=== PATIENT | female | born 1980 | race Caucasian/White ===

== ENCOUNTER → 2016-03-16 | Outpatient (CLI) | payer BC ==
[~2016-03-16] MED LIST: PRENTAB26 PO
== END | disposition home or self-care (01) ==
LOC: C.LAB 10:15
PROVIDERS: ATTEND Obstetrics & Gynecology
DX: O03.9 Complete or unspecified spontaneous abortion without complication (principal)

== ENCOUNTER 2019-06-27 07:42 | Inpatient (IN) ==
[2019-06-27] MEDS ORDERED: OXYTOCIN 30 UNITS/500 ML BAG IV PRN ×3 (08:17→17:59)
[2019-06-27 08:38] LABS: Hemoglobin 12.7 g/dL (12.0-16.0); Mean Corpuscular Hemoglobin 30.2 pg (25-34); Mean Corpuscular Volume 90.5 fL (80-100); Mean Platelet Volume 12.1 fL (7.4-10.4); Platelet Count 171 K/uL (130-400); RDW Coefficient of Variation 13.9 % (11.5-14.5); RDW Standard Deviation 45.7 fL (36.4-46.3); White Blood Count 8.64 K/uL (4.8-10.8)
[2019-06-27 08:40] LABS: Mean Corpuscular Hgb Conc 33.4 g/dL (32-36)
--- NOTE | 2019-06-27 08:42 | History & Physical Report ---
Date of Service June 27, 2019 Assessment & Plan (1) Elective induction of labor planned: 38 yo at 40 wks, with h/o forceps delivery IOL at term VSS Afebrile FHR reassuring GBS negative Plan to admit, monitor, labs and IOL with Oxytocin/ AROM when able All questions were answered (2) History of forceps delivery in prior , currently : History of Present Illness Primary Care Provider: Kaylene Butterfield Patient is a 38 yo at 40 wks who is here for IOL at term No complaints No ctxs/ LOF/ VB/ DONG/ change in vision/ N&V/ Fever/ chills +FM's Her has been uncomplicated AMA GBS negative h/o forceps delivery in 2010, 8 lb 11 oz Allergies Allergy/AdvReac Type Severity Reaction Status Date / Time No Known Allergies Allergy Unverified 05/25/10 09:10 Home Medications Home Medications Medication Instructions Recorded Confirmed Type Multivit/Min/Iron/Fol Ac/Pren 1 tab PO DAILY #0 05/25/10 06/27/19 History ( Vitamin) Patient History Social History Preferred Language: Ghanaian Beliefs That Will Affect Care: None marital status: Current Living Situation: Family Other Information That Helps Us Care for You: No Feels Safe at Home: Yes Safety Concerns: Feels Safe At This Time Smoking Status: Never smoker Do You Dip or Chew Tobacco: No ; Hx Alcohol Use: No Hx Substance Use: No OB History 2010 FT, Forceps delivery , 8 lb 11 oz 2012 FT, IOL at 39 wks, 8 lb 2 oz [employer] History No h/o STD's Review of Systems All systems reviewed & are unremarkable except as noted in HPI & below Physical Exam Gastrointestinal (Abdomen): Abd: soft, NT, gravid, Julius 8-9 lb Genitourinary: normal external appearance Manual OB Exam: + cervical dilation 2 cm, + cervical effacement 30% and + station (-3) high OB Exam Monitor Tracing: + external FHT monitor used and + category I Results & Data Vital Signs (Past 12 Hours) Vital Signs Temp Pulse Resp BP 06/27/19 08:23 85 129/80 06/27/19 08:19 85 127/76 06/27/19 08:13 93 H 139/90 06/27/19 07:59 96 H 139/83 06/27/19 07:50 36.8 C 20 Monitoring External Monitor 130's reactive NST Tocodynamometer No ctxs
[2019-06-27 08:54] LABS: Albumin Level 2.5 gm/dl (3.4-5.0); BUN Creatinine Ratio 11.7 (10-20); Creatinine Clr Calc Pharmacy 130.7 ml/min; Est GFR (African American) 130.8; Est GFR (Non-African American) 112.9; Potassium 3.9 mmol/L (3.5-5.1)
[2019-06-27 08:57] LABS: Albumin Globulin Ratio 0.6 (0.9-2); Bilirubin,Total 0.3 mg/dl (0.2-1); Globulin 4.1 gm/dl (2.5-4.0); Total Protein 6.6 gm/dl (6.4-8.2)
[2019-06-27] MEDS: LACTATED RINGER'S 1,000 ML IV PRN ×3 (09:07→17:57)
[2019-06-27] MEDS ORDERED: BUPIVACAINE 0.25% 30 ML VIAL ONE (14:06)
[2019-06-27] MEDS ORDERED: ePHEDrine sulfate 50 MG/ML AMP ONE (14:06)
[2019-06-27] MEDS ORDERED: fentaNYL citrate 100 MCG/2 ML VIAL ONE (14:06)
[2019-06-27] MEDS ORDERED: fentaNYL 2MCG/ML ROPIV 1.25MG/ML 100 ML BAG EPI ONE (14:07)
[2019-06-27] MEDS ORDERED: NALBUPHINE HCL INJ 10 MG/ML AMP IV PRN (14:19)
[2019-06-27] MEDS ORDERED: fentaNYL 2MCG/ML ROPIV 1.25MG/ML 100 ML BAG EPI PRN (14:19)
[2019-06-27] MEDS ORDERED: NALOXONE HCL 0.4 MG/1 ML VIAL/CARP IV PRN (14:19)
[2019-06-27] MEDS ORDERED: METOCLOPRAMIDE HCL 20 MG in SODIUM CHLORIDE 0.9% 50 ML IV PRN (14:19)
[2019-06-27] MEDS ORDERED: ePHEDrine sulfate 50 MG/ML AMP IV PRN (14:19)
[2019-06-27] MEDS ORDERED: PROMETHAZINE HCL 25 MG in SODIUM CHLORIDE 0.9% 50 ML IV PRN (14:19)
[2019-06-27] MEDS ORDERED: NALOXONE HCL 1 MG in SODIUM CHLORIDE 0.9% 1000ML 1,000 ML IV PRN (14:19)
[2019-06-27] MEDS ORDERED: DiphenhydrAMINE HCL 50 MG/ML VIAL IV PRN (14:19)
[2019-06-27] MEDS ORDERED: ONDANSETRON INJ 2 MG/ML 2 ML VIAL IV PRN (14:19)
--- NOTE | 2019-06-27 14:19 | Anesthesiology Consultation ---
Date of Service June 27, 2019 Assessment & Plan Chart Review Chart Review: Acceptable Risk for Labor Epidural Consults Requested none ASA ASA2 Proposed Anesthesia Anesthesia Type: Labor Epidural Risk / Benefits Reviewed With: PT / POA / Parent / Guardian, Accepts Plan and Informed Consent Obtained History Height/Weight Height: 5 ft 6 in Weight: 88.451 kg Allergies Allergy/AdvReac Type Severity Reaction Status Date / Time No Known Allergies Allergy Unverified 05/25/10 09:10 Medications Home Medications Medication Instructions Recorded Confirmed Last Taken docusate sodium [Colace] 100 mg PO DAILY 06/27/19 06/27/19 06/26/19 18:00 vit-iron fum-folic ac 1 tab PO DAILY 06/27/19 06/27/19 06/26/19 18:00 [ Vitamin] Active Medications Generic Name Dose Route Start Last Admin Trade Name Freq PRN Reason Stop Dose Admin Lactated Ringer's 1,000 mls @ 150 mls/hr 06/27/19 08:17 06/27/19 14:20 Lr IV 06/29/19 08:16 150 mls/hr .[id number] PRN Administration L&D Protocol Protocol Oxytocin 30 units in 500 mls @ 8 mls/hr 06/27/19 08:21 06/27/19 12:15 Pitocin IV 06/29/19 08:20 0.48 units/hr .Q24H PRN 8 mls/hr Labor Induction/Augmentation Titration Protocol 0.48 UNITS/HR NPO Date Last Intake of Fluids: 06/27/19 Time Last Intake of Fluids: 13:00 Date Last Intake of Solids: 06/27/19 Time Last Intake of Solids: 07:00 Exercise / Class Metabolic Activity II 4-5 Yardwork/Stairs/Walk up hill Past Anesthesia History No Hx of Anesthesia Complications and No Family Hx of Anesthesia Complications History of PONV No Hx of PONV and No Hx of Motion Sickness Social History Smoking Status: Never smoker Do You Dip or Chew Tobacco: No Hx Alcohol Use: No Hx Substance Use: No Physical Exam Vital Signs Last Vital Signs Temp 36.8 C 06/27/19 13:15 Pulse 74 06/27/19 12:24 Resp 20 06/27/19 13:15 BP 144/73 H 06/27/19 12:24 ENMT Mouth: no TMJ abnormality Thyromental Distance: > or= 3.5 Finger Breadths Mallampati Class: II Neck normal visual inspection and trachea midline; neck extension not limited Respiratory normal respiratory effort Auscultation: lungs clear to auscultation bilaterally Cardiovascular Rate/Rhythm: regular rate and regular rhythm Heart Sounds: no murmur Musculoskeletal Spine: normal cervical ROM Extremities: full ROM of extremities Neurologic moves all extremities Psychiatric Orientation: alert and oriented x 3 Testing Laboratory Results 06/27/19 08:23 06/27/19 08:23
--- NOTE | 2019-06-27 15:39 | Obstetrical Progress Note ---
Date of Service June 27, 2019 Assessment & Plan Admission and Anticipated Discharge Date Admission Date: June 27, 2019 Subjective Patient is reevaluated I AROM'ed her at 12:20 , abundant clear fluid, cervix was 4/ 50%/ -2, FHR had been categ I She then had epidural for pain, now feels comfortable VE; 6-7cm/ 80%/ -1 FHR 140's with good variability, decels to 100's some with ctxs ( early) some after ( late) Ctxs q 1-3 min Bladder is catheterized 100 ml clear urine Plan to stop Oxytocin, Nasal O2, IVF bouls and continue to monitor closely Results & Data ([facility]) Vital Signs (Past 12 Hours) Vital Signs Temp Pulse Resp BP Pulse Ox 06/27/19 15:35 66 133/81 06/27/19 15:33 70 92 06/27/19 15:31 72 98 06/27/19 15:26 66 99 06/27/19 15:21 70 98 06/27/19 15:20 70 133/58 L 06/27/19 15:16 66 99 06/27/19 15:12 74 115/62 06/27/19 15:11 76 99 06/27/19 15:07 78 109/60 06/27/19 15:06 71 98 06/27/19 15:05 75 103/58 L 06/27/19 15:03 69 113/69 06/27/19 15:01 73 104/63 97 06/27/19 14:59 82 97/63 L 06/27/19 14:57 82 101/54 L 06/27/19 14:56 87 98 06/27/19 14:53 95 H 134/81 06/27/19 14:51 85 99 06/27/19 14:46 89 98 06/27/19 14:41 83 98 06/27/19 14:38 98 H 130/65 06/27/19 13:15 36.8 C 20 06/27/19 12:30 20 06/27/19 12:24 74 144/73 H 06/27/19 12:15 72 138/101 H 06/27/19 11:16 71 117/65 06/27/19 10:16 86 143/93 H 06/27/19 09:13 83 135/79 04/15/20 08:23 85 129/80 06/27/19 08:19 85 127/76 06/27/19 08:13 93 H 139/90 06/27/19 07:59 96 H 139/83 06/27/19 07:50 36.8 C 20
--- NOTE | 2019-06-27 16:44 | Obstetrical Progress Note ---
Date of Service June 27, 2019 Assessment & Plan Admission and Anticipated Discharge Date Admission Date: June 27, 2019 Subjective Patient feels more pain with ctxs VE; 8-9/ 90%/ 0 FHR categ I, no more decels Ctxs spaced out Continue to monitor, restart pitocin from beginning Results & Data ([facility]) Vital Signs (Past 12 Hours) Vital Signs Temp Pulse Resp BP Pulse Ox 06/27/19 16:36 75 99 06/27/19 16:35 68 109/55 L 06/27/19 16:31 75 99 06/27/19 16:30 20 06/27/19 16:26 68 100 06/27/19 16:21 72 100 06/27/19 16:16 68 100 06/27/19 16:11 64 100 06/27/19 16:06 77 114/68 100 06/27/19 16:01 68 100 06/27/19 16:00 20 06/27/19 15:56 67 100 06/27/19 15:51 65 100 06/27/19 15:50 69 121/73 06/27/19 15:46 64 119/71 98 06/27/19 15:45 20 06/27/19 15:41 63 100 06/27/19 15:36 66 99 06/27/19 15:35 66 133/81 06/27/19 15:33 70 92 06/27/19 15:31 72 98 06/27/19 15:26 66 99 06/27/19 15:21 70 98 06/27/19 15:20 70 133/58 L 06/27/19 15:16 66 99 06/27/19 15:12 74 115/62 06/27/19 15:11 76 99 06/27/19 15:07 78 109/60 06/27/19 15:06 71 98 06/27/19 15:05 75 103/58 L 06/27/19 15:03 69 113/69 06/27/19 15:01 73 104/63 97 06/27/19 14:59 82 97/63 L 06/27/19 14:57 82 101/54 L 06/27/19 14:56 87 98 06/27/19 14:53 95 H 134/81 06/27/19 14:51 85 99 06/27/19 14:46 89 98 06/27/19 14:41 83 98 06/27/19 14:38 98 H 130/65 06/27/19 13:15 36.8 C 20 06/27/19 12:30 20 06/27/19 12:24 74 144/73 H 06/27/19 12:15 72 138/101 H 06/27/19 11:16 71 117/65 06/27/19 10:16 86 143/93 H 06/27/19 09:13 83 135/79 06/27/19 08:23 85 129/80 06/27/19 08:19 85 127/76 06/27/19 08:13 93 H 139/90 06/27/19 07:59 96 H 139/83 06/27/19 07:50 36.8 C 20
[2019-06-27] MEDS ORDERED: METHYLERGONOVINE MALEATE 0.2 MG/ML AMP ONE (17:54)
[2019-06-27] MEDS ORDERED: bisacodyL 10 MG SUPP PR PRN (17:59)
[2019-06-27] MEDS ORDERED: SUPERCREAM 0.870% 15 GM JAR EXT PRN (17:59)
[2019-06-27] MEDS ORDERED: HYDROCORTISONE ACETATE 25 MG SUPP PR PRN (17:59)
[2019-06-27] MEDS ORDERED: ACETAMINOPHEN 325 MG TAB PO PRN (17:59)
[2019-06-27] MEDS ORDERED: BENZOCAINE 20% AER SPR 82.5 GM CAN EXT PRN (17:59)
[2019-06-27] MEDS ORDERED: MEASLES, MUMPS & RUBELLA VIRUS VIAL SQ ONE (18:30)
[2019-06-27] MEDS ORDERED: METHYLERGONOVINE MALEATE 0.2 MG/ML AMP IM ONE (18:30)
[2019-06-27] MEDS ORDERED: LACTATED RINGER'S 1,000 ML IV SCH (18:30)
[2019-06-27] MEDS ORDERED: DIPHTHERIA/TETANUS/PERTUSSIS 0.5 ML SYR/VIAL IM ONE (18:30)
--- NOTE | 2019-06-27 19:15 | Anesthesia Procedure Note ---
Date of Service June 27, 2019 Anesthesia Post Epidural Note Vital Signs Vital Signs: Temp Pulse Resp BP Pulse Ox 36.9 C 89 20 125/74 97 06/27/19 17:55 06/27/19 19:10 06/27/19 18:10 06/27/19 19:10 06/27/19 17:56 Pain Intensity Bilateral Abdomen: Pain Intensity: 0 Notes Mental Status: alert / awake / arousable Nausea / Vomiting: adequately controlled Pain: adequately controlled Airway Patency, RR, SpO2: stable & adequate BP & HR: stable & adequate Hydration State: stable & adequate Neuraxial Anesthesia: was administered and sensory block is resolving Anesthetic Complications: no major complications apparent and Pt Satisfied with anesthetic care Epidural: Removed without complications and With tip intact
--- NOTE | 2019-06-27 20:04 | Delivery Summary ---
DATE OF OPERATION: 06/27/2019 TIME OF DELIVERY OF BABY: 1730 p.m. TIME OF DELIVERY OF PLACENTA: 1747 p.m. DETAILS OF DELIVERY: The patient was found to be fully dilated and desired to push. She pushed for about 20 minutes and delivered the head without difficulty and there was noted to be a turtle sign and the anterior/ left shoulder was noted to be stuck behind the pubic symphysis, and the nurses were noted of shoulder dystocia. The patient's bed was lowered down, and with suprapubic pressure, shoulders were delivered with minimal traction. Baby was handed off to the mother within less than a minute from the delivery of the head, and then mouth and nose were suctioned. Cord was clamped x2 and cut. It was 3-vessel cord. Then baby started crying and moving vigorously and then cord blood was obtained. Vagina and perineum were checked for lacerations. There was a second-degree small laceration at the posterior fourchette and then first-degree superior to the urethra. The perineal laceration was repaired with 2-0 Vicryl in a running locked fashion and then a periureteral laceration was repaired with 3-0 Vicryl on a SH needle in a running fashion while using a catheter and excellent hemostasis was achieved. Then, the placenta was found to be in the vagina, delivered spontaneous as intact and complete. Uterus was explored, found to be empty. Lower segment was cleared of all clots and debris. Fundus was firm. EBL was 300 mL. Mom and baby tolerated the procedure well. Sponge, lap, needle count was correct x2. Baby was a viable male infant, Apgars 8/9, weight is 4430 grams. No complications happened other than mild shoulder dystocia and I was present during whole procedure. I attest to the content of the Intraoperative Record and any orders documented therein. Any exceptions are noted below. MILLYD
[2019-06-27] MEDS: IBUPROFEN 600 MG TAB PO PRN (20:44)
[2019-06-27] MEDS: DOCUSATE SODIUM 100 MG CAP PO SCH (20:44)
[2019-06-27] MEDS: METHYLERGONOVINE MALEATE 0.2 MG TAB PO SCH (22:09)
[2019-06-28] MEDS: METHYLERGONOVINE MALEATE 0.2 MG TAB PO SCH ×5 (01:50→18:05)
[2019-06-28] MEDS: IBUPROFEN 600 MG TAB PO PRN ×3 (05:53→20:01)
[2019-06-28 06:41] LABS: Hemoglobin 11.5 g/dL (12.0-16.0); Mean Corpuscular Hemoglobin 29.9 pg (25-34); Mean Corpuscular Hgb Conc 32.9 g/dL (32-36); Mean Corpuscular Volume 90.9 fL (80-100); Mean Platelet Volume 12.3 fL (7.4-10.4); Platelet Count 155 K/uL (130-400); RDW Coefficient of Variation 14.1 % (11.5-14.5); RDW Standard Deviation 45.9 fL (36.4-46.3); Red Blood Count 3.85 M/uL (4.2-5.4); White Blood Count 13.47 K/uL (4.8-10.8)
[2019-06-28] MEDS: FERROUS SULFATE 325 MG TAB PO SCH (09:30)
[2019-06-28] MEDS: PRENATAL VITAMIN 1 TAB PO SCH (09:30)
[2019-06-28] MEDS: DOCUSATE SODIUM 100 MG CAP PO SCH ×2 (09:30→20:01)
--- NOTE | 2019-06-28 10:21 | Obstetrical Progress Note ---
Date of Service June 28, 2019 Assessment & Plan Admission and Anticipated Discharge Date Admission Date: June 27, 2019 Subjective PPD#1 doing well passing gas ambulating well tolerating diet Physical Exam Constitutional: WD/WN, vitals as above comfortable abdomen soft and non- tender fundus firm no edema neg Stewart's tent d/c in AM Results & Data ([facility]) Vital Signs (Past 12 Hours) Vital Signs Temp Pulse Resp BP Pulse Ox 06/28/19 07:44 36.7 C 69 20 124/81 97 06/28/19 04:45 36.6 C 67 17 103/66 98 06/28/19 00:40 36.9 C 84 16 126/76 96 Laboratory Results Laboratory Results - last 72 hr 06/27/19 06/27/19 06/28/19 08:23 08:23 06:17 WBC 8.64 13.47 H RBC 4.20 3.85 L Hgb 12.7 11.5 L Hct 38.0 35.0 L MCV 90.5 90.9 MCH 30.2 29.9 MCHC 33.4 32.9 RDW Std Deviation 45.7 45.9 RDW Coeff of Mandeep 13.9 14.1 Plt Count 171 155 MPV 12.1 H 12.3 H Sodium 138 Potassium 3.9 Chloride 109 H Carbon Dioxide 22 Anion Gap 8.0 BUN 8 Creatinine 0.66 Est Cr Clr Drug Dosing 130.7 Est GFR ( Amer) 130.8 Est GFR (Non-Af Amer) 112.9 BUN/Creatinine Ratio 11.7 Glucose 95 Calcium 9.0 Total Bilirubin 0.3 AST 18 ALT 21 Alkaline Phosphatase 150 H Total Protein 6.6 Albumin 2.5 L Globulin 4.1 H Albumin/Globulin Ratio 0.6 L
--- NOTE | 2019-06-28 10:51 | Obstetrical Progress Note ---
Date of Service June 28, 2019 Assessment & Plan Admission and Anticipated Discharge Date Admission Date: June 27, 2019 Subjective Patient is seen and examined. She feels well, no complaints. Ambulating without dizziness Voiding without difficulty Tolerating regular diet with out N&V Bleeding is minimal No fever/ chills/ CP/ SOB/ N&V/ Leg pain Breast feeding without problems Vital Signs Temp Pulse Resp BP Pulse Ox 06/28/19 07:44 36.7 C 69 20 124/81 97 06/28/19 04:45 36.6 C 67 17 103/66 98 06/28/19 00:40 36.9 C 84 16 126/76 96 Lab Results 06/27/19 06/27/19 06/28/19 Range/Units 08:23 08:23 06:17 WBC 8.64 13.47 H (4.8-10.8) K/uL RBC 4.20 3.85 L (4.2-5.4) M/uL Hgb 12.7 11.5 L (12.0-16.0) g/dL Hct 38.0 35.0 L (37-47) % MCV 90.5 90.9 (80-100) fL MCH 30.2 29.9 (25-34) pg MCHC 33.4 32.9 (32-36) g/dL RDW Std Deviation 45.7 45.9 (36.4-46.3) fL RDW Coeff of Mandeep 13.9 14.1 (11.5-14.5) % Plt Count 171 155 (130-400) K/uL MPV 12.1 H 12.3 H (7.4-10.4) fL Sodium 138 (136-145) mmol/L Potassium 3.9 (3.5-5.1) mmol/L Chloride 109 H (98-107) mmol/L Carbon Dioxide 22 (21-32) mmol/L Anion Gap 8.0 (3-11) BUN 8 (7-18) mg/dl Creatinine 0.66 (0.6-1.2) mg/dl Est Cr Clr Drug Dosing 130.7 ml/min Est GFR ( Amer) 130.8 Est GFR (Non-Af Amer) 112.9 BUN/Creatinine Ratio 11.7 (10-20) Glucose 95 (70-99) mg/dl Calcium 9.0 (8.5-10.1) mg/dl Total Bilirubin 0.3 (0.2-1) mg/dl AST 18 (15-37) U/L ALT 21 (12-78) U/L Alkaline Phosphatase 150 H (45-117) U/L Total Protein 6.6 (6.4-8.2) gm/dl Albumin 2.5 L (3.4-5.0) gm/dl Globulin 4.1 H (2.5-4.0) gm/dl Albumin/Globulin Ratio 0.6 L (0.9-2) PE: General: Alert, orientedx3, NAD Abd: soft, NT, fundus firm, below Umbilicus Perineum intact, Lochia rubra minimal Ext; NT, no edema AP: 38 yo s/p , ppd# 1 VSS Afebrile doing well Continue routine care All questions were answered D/C home tomorrow Results & Data ([facility]) Vital Signs (Past 12 Hours) Vital Signs Temp Pulse Resp BP Pulse Ox 06/28/19 07:44 36.7 C 69 20 124/81 97 06/28/19 04:45 36.6 C 67 17 103/66 98 06/28/19 00:40 36.9 C 84 16 126/76 96
[2019-06-28] MEDS ORDERED: bisacodyL 5 MG TABEC PO SCH (20:00)
[2019-06-29] MEDS: IBUPROFEN 600 MG TAB PO PRN ×2 (05:00→08:46)
[2019-06-29 06:14] LABS: Basophils # (auto) 0.02 K/uL (0-0.2); Basophils % (auto) 0.2 %; Eosinophils # (auto) 0.16 K/uL (0-0.5); Eosinophils % (auto) 1.7 %; Hematocrit (blood only) 32.7 % (37-47); Hemoglobin 10.8 g/dL (12.0-16.0); Immature Granulocytes # (auto) 0.02 K/uL (0.00-0.02); Immature Granulocytes % (auto) 0.2 %; Lymphocytes # (auto) 1.42 K/uL (1.2-3.4); Lymphocytes % (auto) 15.3 %; Mean Corpuscular Volume 90.8 fL (80-100); Mean Platelet Volume 11.5 fL (7.4-10.4); Monocytes # (auto) 0.85 K/uL (0.11-0.59); Monocytes % (auto) 9.1 %; Neutrophils # (auto) 6.82 K/uL (1.4-6.5); Neutrophils % (auto) 73.5 %; Platelet Count 143 K/uL (130-400); RDW Coefficient of Variation 14.2 % (11.5-14.5); RDW Standard Deviation 46.8 fL (36.4-46.3); White Blood Count 9.29 K/uL (4.8-10.8)
--- NOTE | 2019-06-29 07:52 | Obstetrical Progress Note ---
Date of Service June 29, 2019 Assessment & Plan Admission and Anticipated Discharge Date Admission Date: June 27, 2019 Subjective Patient is seen and examined. She feels well, no complaints. Ambulating without dizziness Voiding without difficulty Tolerating regular diet with out N&V Bleeding is minimal No fever/ chills/ CP/ SOB/ N&V/ Leg pain Breast feeding without problems Discussed contraception, plans to use condoms, never failed for them Vital Signs Temp Pulse Resp BP Pulse Ox 06/28/19 23:25 36.6 C 69 16 124/82 98 Lab Results 06/27/19 06/27/19 06/28/19 Range/Units 08:23 08:23 06:17 WBC 8.64 13.47 H (4.8-10.8) K/uL RBC 4.20 3.85 L (4.2-5.4) M/uL Hgb 12.7 11.5 L (12.0-16.0) g/dL Hct 38.0 35.0 L (37-47) % MCV 90.5 90.9 (80-100) fL MCH 30.2 29.9 (25-34) pg MCHC 33.4 32.9 (32-36) g/dL RDW Std Deviation 45.7 45.9 (36.4-46.3) fL RDW Coeff of Mandeep 13.9 14.1 (11.5-14.5) % Plt Count 171 155 (130-400) K/uL MPV 12.1 H 12.3 H (7.4-10.4) fL Immature Gran % (Auto) % Neut % (Auto) % Lymph % (Auto) % Knott % (Auto) % Eos % (Auto) % Baso % (Auto) % Immature Gran # (Auto) (0.00-0.02) K/uL Neut # (Auto) (1.4-6.5) K/uL Lymph # (Auto) (1.2-3.4) K/uL Knott # (Auto) (0.11-0.59) K/uL Eos # (Auto) (0-0.5) K/uL Baso # (Auto) (0-0.2) K/uL Sodium 138 (136-145) mmol/L Potassium 3.9 (3.5-5.1) mmol/L Chloride 109 H (98-107) mmol/L Carbon Dioxide 22 (21-32) mmol/L Anion Gap 8.0 (3-11) BUN 8 (7-18) mg/dl Creatinine 0.66 (0.6-1.2) mg/dl Est Cr Clr Drug Dosing 130.7 ml/min Est GFR ( Amer) 130.8 Est GFR (Non-Af Amer) 112.9 BUN/Creatinine Ratio 11.7 (10-20) Glucose 95 (70-99) mg/dl Calcium 9.0 (8.5-10.1) mg/dl Total Bilirubin 0.3 (0.2-1) mg/dl AST 18 (15-37) U/L ALT 21 (12-78) U/L Alkaline Phosphatase 150 H (45-117) U/L Total Protein 6.6 (6.4-8.2) gm/dl Albumin 2.5 L (3.4-5.0) gm/dl Globulin 4.1 H (2.5-4.0) gm/dl Albumin/Globulin Ratio 0.6 L (0.9-2) // Range/Units 01:14 WBC 9.29 (4.8-10.8) K/uL RBC 3.60 L (4.2-5.4) M/uL Hgb 10.8 L (12.0-16.0) g/dL Hct 32.7 L (37-47) % MCV 90.8 (80-100) fL MCH 30.0 (25-34) pg MCHC 33.0 (32-36) g/dL RDW Std Deviation 46.8 H (36.4-46.3) fL RDW Coeff of Mandeep 14.2 (11.5-14.5) % Plt Count 143 (130-400) K/uL MPV 11.5 H (7.4-10.4) fL Immature Gran % (Auto) 0.2 % Neut % (Auto) 73.5 % Lymph % (Auto) 15.3 % Knott % (Auto) 9.1 % Eos % (Auto) 1.7 % Baso % (Auto) 0.2 % Immature Gran # (Auto) 0.02 (0.00-0.02) K/uL Neut # (Auto) 6.82 H (1.4-6.5) K/uL Lymph # (Auto) 1.42 (1.2-3.4) K/uL Knott # (Auto) 0.85 H (0.11-0.59) K/uL Eos # (Auto) 0.16 (0-0.5) K/uL Baso # (Auto) 0.02 (0-0.2) K/uL Sodium (136-145) mmol/L Potassium (3.5-5.1) mmol/L Chloride (98-107) mmol/L Carbon Dioxide (21-32) mmol/L Anion Gap (3-11) BUN (7-18) mg/dl Creatinine (0.6-1.2) mg/dl Est Cr Clr Drug Dosing ml/min Est GFR ( Amer) Est GFR (Non-Af Amer) BUN/Creatinine Ratio (10-20) Glucose (70-99) mg/dl Calcium (8.5-10.1) mg/dl Total Bilirubin (0.2-1) mg/dl AST (15-37) U/L ALT (12-78) U/L Alkaline Phosphatase (45-117) U/L Total Protein (6.4-8.2) gm/dl Albumin (3.4-5.0) gm/dl Globulin (2.5-4.0) gm/dl Albumin/Globulin Ratio (0.9-2) PE: General: Alert, orientedx3, NAD Abd: soft, NT, fundus firm, below Umbilicus Perineum intact, Lochia rubra minimal Ext; NT, no edema AP: 38 yo s/p , ppd# 2 VSS Afebrile doing well Continue routine care All questions were answered Discussed when to call D/C home , f/u in office and telemedicine Results & Data ([facility]) Vital Signs (Past 12 Hours) Vital Signs Temp Pulse Resp BP Pulse Ox 06/28/19 23:25 36.6 C 69 16 124/82 98
[2019-06-29] MEDS: DOCUSATE SODIUM 100 MG CAP PO SCH (08:45)
[2019-06-29] MEDS: FERROUS SULFATE 325 MG TAB PO SCH (08:46)
[2019-06-29] MEDS: PRENATAL VITAMIN 1 TAB PO SCH (08:46)
== END 2019-06-29 13:35 | disposition home or self-care (01) | DRG 807 ==
LOC: 4S1 07:42 → 4S2 20:30